=== PATIENT | female | born 1985 | race Caucasian/White ===

== ENCOUNTER 2017-06-15 15:25 | Emergency (ER) | payer MEDICAID ==
[~2017-06-15] VITALS: Ht 167.6 cm; Wt 61.2 kg
[2017-06-15] MEDS ORDERED: LIDOCAINE 2% VISCOUS 15 ML SOLUTION. SWSW ONE (17:30)
[2017-06-15] MEDS ORDERED: methylPREDNISolone SOD SUCC PF 125 MG/2 ML VIAL. IM ONE (17:30)
[2017-06-15] MEDS ORDERED: diphenhydrAMINE 50 MG/ML VIAL IM ONE (17:30)
--- NOTE | 2017-06-15 17:55 | PHYS DOC ---
General Chief Complaint: FEVER Stated Complaint: FEVER,SORES ON TONGUE Time Seen by MD: 16:54 Source: patient Exam Limitations: clinical condition, intoxication Problems: (QUINTIN HERNANDEZ DO) Time Seen by MD: 18:06 Problems: (JT PATINO MD) History of Present Illness Initial Comments Patient is a 32-year-old female who comes to the ED with a friend complaining of fever rash sore throat body aches and sores in her mouth. Patient states that for the past several days she's had fever, body aches, bleeding from her ears and eyes, sore throat, whole body pain and itching. She denies chest pain or trouble breathing, no nausea vomiting or diarrhea. She is extremely dramatic and requesting pain medications repeatedly. She appears altered, intoxicated but denies taking anything other than her gabapentin which is prescribed for seizure disorder. She denies focal neurologic deficit headache or recent seizure. She is a very poor historian and appears to be evasive with altered mental status likely skin without any Patient reportedly recently got out of long term, her acquaintance states that she awoke without any symptoms this morning. He states that throughout the day she began complaining of sores in her mouth and has actually developed some blisters , through today she's also begun to slur and appear to be unsteady on her feet. He confidentially states to me that he is highly suspicious that she has taken an illegal substance today given the dramatic change in her behavior. ED vitals: 97.6, 124, 20, 138/108, 99% room air Timing/Duration: getting worse, changing over time Severity: severe Modifying Factors: improves with other Associated Symptoms: fever/chills, malaise, rash, other (QUINTIN HERNANDEZ DO) Allergies: Coded Allergies: Penicillins (Verified Allergy, Unknown, Anaphylaxis, 06/15/17) carbamazepine (Verified Allergy, Unknown, Hives, 06/15/17) divalproex sodium (Verified Allergy, Unknown, Hives, 06/15/17) hydromorphone (Verified Allergy, Unknown, Hives, 06/15/17) lamotrigine (Verified Allergy, Unknown, Hives, 06/15/17) levetiracetam (Verified Allergy, Unknown, Hives, 06/15/17) Past Medical History Medical History: other (seizure, opiate addiction) Surgical History: other (tubal ligation, cholecystectomy, hysterectomy) (QUINTIN HERNANDEZ DO) Social History Smoker: cigarettes Alcohol: occasionally Drugs: other (history of opiates addiction/abuse) (QUINTIN HERNANDEZ DO) Review of Systems All Other Systems: Reviewed and Negative (patient with altered mental status and apparent intoxication, review of systems is per history of present illness) (QUINTIN HERNANDEZ DO) Physical Exam General Appearance: moderate distress, thin Ear, Nose, Throat: hearing grossly normal, normal ENT inspection (clear vesicles at tongue and mucous membranes consistent with herpetic gingivostomatitis), normal pharynx (airway is patent) Neck: supple (tender reactive lymphadenopathy bilaterally no nuchal rigidity) Respiratory: normal breath sounds, no respiratory distress Cardiovascular: normal peripheral pulses, tachycardia Gastrointestinal: normal bowel sounds, non tender, soft Back: no CVA tenderness, no vertebral tenderness Extremities: no pedal edema, no calf tenderness, pelvis stable, other ( apparent track brown noted left antecubital) Neurologic/Psychiatric: beef boner II-XII nml as tested, no motor/sensory deficits, oriented x 3, other (slurring and dramatic, exaggerating, unsteady no tremor appears intoxicated) Skin: warm/dry (excoriations noted at the anterior abdomen and left eyelid, no jaundice or evidence of secondary cellulitic changes) (QUINTIN HERNANDEZ DO) Orders, Labs, Meds Patient received Solu-Medrol 125 mg, Benadryl 25 mg IM for potential of allergic reaction/rash. Viscous lidocaine swish and swallow also ordered for patient's oral pharyngeal pain symptoms. CMP, CBC and kinase as well as urine drug screen ordered. 1820: Patient signed out to Dr. Mendez at 1800 shift change. See her documentation for further patient workup, results, and disposition. (QUINTIN HERNANDEZ DO) Orders, Labs, Meds Assumed care from Dr. Hernandez. Heart rate normalized, labs show polysubstance abuse & mild elevation of CK. Will give magic mouthwash for mouth sores possible hand foot mouth, benadryl for itching. Drink fluids to stay hydrated, zofran for nausea, avoid abusing drugs. Follow up with PCP in 2-3 days. Come back for high fever, severe pain, uncontrolled vomiting, any otherwise worsening condition. Discharged home in stable condition. (JT PATINO MD) QUINTIN HERNANDEZ DO Jun 15, 2017 17:55 JT PATINO MD Jun 15, 2017 20:31
[2017-06-15] MEDS ORDERED: IV NORMAL SALINE 1,000ML 1,000 ML IV ONE (18:15)
[2017-06-15 18:23] LABS: BARBITURATES NEG (NEG); BENZODIAZEPINES NEG (NEG); CANNABINOIDS NEG (NEG); COCAINE POS (NEG); METHADONE POS (NEG); OPIATES POS (NEG); PHENCYCLIDINE NEG (NEG)
[2017-06-15 18:24] LABS: AMPHETAMINE/METHAMPHETAMINE POS (NEG)
[2017-06-15 18:30] VITALS: BP 128/89
[2017-06-15] MEDS ORDERED: IV RINGERS SOLUTION,LACTATED 1,000 ML IV ONE (19:15)
[2017-06-15 19:59] LABS: BASO # 0.1 x10^3/uL (0.0-0.2); BASO % 1 % (0-3); EOS # 0.1 x10^3/uL (0.0-0.7); EOS % 1 % (0-3); HEMATOCRIT 41.9 % (36.0-47.0); HEMOGLOBIN 14.5 g/dL (12.0-15.5); LYMPH % 9 % (24-48); MEAN CORPUSCULAR HEMOGLOBIN 30 pg (25-35); MEAN CORPUSCULAR HGB CONC 35 g/dL (31-37); MEAN CORPUSCULAR VOLUME 88 fL (79-100); MONO # 0.4 x10^3/uL (0.0-1.1); MONO % 4 % (0-9); NEUT # 9.2 x10^3uL (1.8-7.7); NEUT % 86 % (31-73); PLATELET COUNT 273 x10^3/uL (140-400); RED BLOOD COUNT 4.77 x10^6/uL (3.50-5.40); RED CELL DISTRIBUTION WIDTH 13.4 % (11.5-14.5); WHITE BLOOD COUNT 10.7 x10^3/uL (4.0-11.0)
[2017-06-15 20:13] LABS: ALBUMIN 4.1 g/dL (3.4-5.0); CALCIUM 9.9 mg/dL (8.5-10.1); CREATININE 0.9 mg/dL (0.6-1.0); GFR 72.1; POTASSIUM 3.9 mmol/L (3.5-5.1); TOTAL BILIRUBIN 0.4 mg/dL (0.2-1.0); TOTAL PROTEIN 8.1 g/dL (6.4-8.2)
[2017-06-15] MEDS ORDERED: LIDO5JEL3 MM (20:44)
[2017-06-15] MEDS ORDERED: ONDA4TAB10 SL (20:44)
== END 2017-06-15 20:50 | disposition home or self-care (01) ==
LOC: ER 15:25
DX: R50.9 Fever, unspecified (principal); R21 Rash and other nonspecific skin eruption; J02.9 Acute pharyngitis, unspecified; M79.1 Myalgia; F11.20 Opioid dependence, uncomplicated; G40.909 Epilepsy, unspecified, not intractable, without status epilepticus; F17.210 Nicotine dependence, cigarettes, uncomplicated; Z88.0 Allergy status to penicillin; Z88.8 Allergy status to other drugs, medicaments and biological substances; Z88.5 Allergy status to narcotic agent
CPT/HCPCS: 36415; 80053; 80307; 82550; 85025; 96360; 96372; 99284; J1200; J2930; J7120; G0479